=== PATIENT | male | born 1990 | race Hispanic/Latino ===

== ENCOUNTER 2018-03-02 21:17 | Emergency (ER) | payer OTHER ==
[~2018-03-02] VITALS: Ht 177.8 cm; Wt 91.2 kg
[~2018-03-02 21:17] MED LIST: MOTRIN800 MG PO; RELPAX40 M1 PO
--- NOTE | 2018-03-02 22:18 | ED UPPER/LOWER EXTREMITY COMPL ---
History of Present Illness General Chief Complaint: Foot or Ankle Injury Stated Complaint: ?BROKEN LEFT TOE Source: patient Exam Limitations: no limitations Vital Signs & Intake/Output Vital Signs & Intake/Output Vital Signs Date Time Temp Pulse Resp B/P B/P Pulse O2 O2 Flow FiO2 Mean Ox Delivery Rate 03/02 2140 97.9 84 18 129/78 98 Room Air Allergies Coded Allergies: oxycodone (Mild, ITCHY 07/07/16) Uncoded Allergies: ORANGES (Severe, ITCHINESS 02/19/13) Reconcile Medications Eletriptan HBr (Relpax) 40 MG TABLET 1 TAB PO SI PRN HEADACHES (Reported) TAKE 1 TABLET BY MOUTH NEEDED WITH ONSET OF HEADACHE Triage Note: ACCIDENTALLY DROP A 45 LBS WEIGHT PLATE ON HIS LEFT BIG TOE. Triage Nurses Notes Reviewed? yes Onset: Abrupt Duration: constant Timing: single episode today Severity: moderate Severity Numbers: 5 Method of Injury: direct blow HPI: Patient is a 28-year-old male who presents emergency room stating that a 45 pound weighted plate fell on patient's left great toe resulting acute onset of pain swelling and bruising. No nail involvement or trauma skin intact patient has not taken any medications for symptoms states that ambulation and palpation makes worse (Lizandro Rogers) Past History Travel History Traveled to [place] past 21 day No Medical History Any Pertinent Medical History? none Neurological: NONE EENT: NONE Cardiovascular: NONE Respiratory: NONE Gastrointestinal: NONE Hepatic: NONE Renal: NONE Musculoskeletal: NONE Psychiatric: NONE Endocrine: NONE Blood Disorders: NONE Cancer(s): NONE MDS MANAGER/Reproductive: NONE Tetanus Vaccine: 02/19/13 Surgical History Surgical History: non-contributory Psychosocial History What is your primary language Azeri Tobacco Use: Never used Family History Hx Contributory? No (Lizandro Rogers) Review of Systems Review of Systems Constitutional: Reports: no symptoms. EENTM: Reports: no symptoms. Respiratory: Reports: no symptoms. Cardiovascular: Reports: no symptoms. Gastrointestinal/Abdominal: Reports: no symptoms. Genitourinary: Reports: no symptoms. Musculoskeletal: Reports: see HPI, joint pain, joint swelling. Skin: Reports: see HPI. Neurological/Psychological: Reports: no symptoms. Hematologic/Endocrine: Reports: no symptoms. Immunological: Reports: no symptoms. All Other Systems: Reviewed and Negative (Lizandro Rogers) Physical Exam Physical Exam General Appearance: no apparent distress, alert, comfortable Head: atraumatic Eyes: Bilateral: normal appearance. Ears, Nose, Throat: hearing grossly normal Neck: normal inspection Cardiovascular/Respiratory: no respiratory distress Peripheral Pulses: 2+ dorsalis pedis (L) Neurologic/Tendon: normal sensation, normal motor functions, normal tendon functions, responds to pain, no evidence tendon injury Skin: intact Diagram Feet Top 1) Noted interphalanx point tenderness swelling and ecchymosis dermatomes intact CAPILLARY refill less than 2 seconds no nail trauma decreased active range of motion noted (Lizandro Rogers) Progress Differential Diagnosis: arterial insufficiency, compartment syndrome, contusion, dislocation, DVT, fracture, gout, septic arthritis, sprain, tendon injury Plan of Care: Orders Procedure Date/time Status XRY-TOES, LEFT 03/02 2142 Active Current Medications Sig/Bernie Start time Last Medication Dose Stop Time Status Admin Ibuprofen 600 MG ONCE ONE 03/02 2230 UNVr (Motrin) 03/02 2231 Patient was neurovascularly intact to the left foot and toe, x-rays resulted no acute osseous injury patient was offered crutches however declines Diagnostic Imaging: Viewed by Me: Radiology Read. Radiology Impression: no fracture Comments: PATIENT: ELENO ACEVEDO PRESENT AGE: 28 PATIENT ACCOUNT NO: [id number] : 92 LOCATION: [facility] ORDERING PHYSICIAN: Lizandro SANDOVAL SERVICE DATE: 03/02/18 EXAM TYPE: RAD - XRY-TOES, LEFT EXAMINATION: XR TOES, LEFT CLINICAL INFORMATION: Pain. Trauma. COMPARISON: None TECHNIQUE: 3 views of the left toes were obtained. FINDINGS: There are no fractures or dislocations. No joint effusion is identified. No bone, joint or soft tissue abnormality is demonstrated. IMPRESSION: Normal left great toe. DICTATED BY: Gregory Ashby MD DATE/TIME DICTATED:03/02/182235 [employer] TEACHER:JUNI DATE/TIME TRANSCRIBED:03/02/182235 (Lizandro Rogers) Departure Departure Disposition: HOME OR SELF CARE Condition: Stable Clinical Impression Primary Impression: Contusion of great toe, left Referrals: Miguelito HANSEN,Estevan Chavis (PCP/Family) Additional Instructions: As discussed begin icing the area directly 20 minutes every 2 hours, begin over- the-counter ibuprofen for pain and inflammation, if symptoms worsen return to emergency room Departure Forms: Customer Survey General Discharge Information (Carline SANDOVAL,Lizandro) PA/INVENTORY CONTROL ASSISTANT Co-Sign Statement Statement: ED Attending supervision documentation- [] I saw and evaluated the patient. I have also reviewed all the pertinent lab results and diagnostic results. I agree with the findings and the plan of care as documented in the PA's/INVENTORY CONTROL ASSISTANT's documentation. [X] I have reviewed the ED Record and agree with the PA's/INVENTORY CONTROL ASSISTANT's documentation. [] Additions or exceptions (if any) to the PAs/INVENTORY CONTROL ASSISTANT's note and plan are summarized below: [] (Irish HANSEN,Ramesh Cota)
--- NOTE | 2018-03-02 22:41 | RADIOLOGY REPORT ---
EXAMINATION: XR TOES, LEFT CLINICAL INFORMATION: Pain. Trauma. COMPARISON: None TECHNIQUE: 3 views of the left toes were obtained. FINDINGS: There are no fractures or dislocations. No joint effusion is identified. No bone, joint or soft tissue abnormality is demonstrated. IMPRESSION: Normal left great toe.
[2018-03-02 23:05] VITALS: BP 122/79
== END 2018-03-02 23:08 ==
LOC: ERH 21:17
DX: S90.112A Contusion of left great toe without damage to nail, initial encounter (principal); W20.8XXA Other cause of strike by thrown, projected or falling object, initial encounter; Y93.B3 Activity, free weights; Y92.9 Unspecified place or not applicable
CPT/HCPCS: 73660-LT